=== PATIENT | female | born 1980 | race Caucasian/White ===

== ENCOUNTER 2018-06-18 17:46 | Observation (INO) ==
[2018-06-18] MEDS ORDERED: NS 1,000 ML IV ONE ×2 (18:34→21:48)
[2018-06-18] MEDS ORDERED: ZOFRAN IV ONE ×2 (18:34→22:31)
[2018-06-18] MEDS ORDERED: MORPHINE IV ONE ×2 (18:34→21:47)
[2018-06-18 18:48] LABS: URINE SOURCE CLEAN CATCH
[2018-06-18 18:51] LABS: BILIRUBIN URINE NEGATIVE (NEGATIVE); BLOOD URINE NEGATIVE (NEGATIVE); COLOR YELLOW; GLUCOSE URINE >1000 mg/dL (NEGATIVE); KETONE URINE 100 mg/dL (NEGATIVE); LEUKOCYTES URINE NEGATIVE (NEGATIVE); NITRITE URINE NEGATIVE (NEGATIVE); PH URINE 5.5; PROTEIN URINE 30 mg/dL (NEGATIVE); SP GRAVITY URINE 1.042; TURBIDITY URINE CLEAR (CLEAR); UR EPITHELIAL CELLS <10 /HPF (<10); URINE BACTERIA NEGATIVE /HPF; URINE RBC <10 /HPF (<10); URINE WBC <10 /HPF (<10); UROBILINOGEN URINE NORMAL (NORMAL)
[2018-06-18 19:12] LABS: BASO# 0.02 X1000 (0.0-0.2); BASO% 0.2 % (0.0-0.8); EOS# 0.01 X1000 (0.0-0.7); EOS% 0.1 % (0.0-10.0); HEMATOCRIT 42.9 % (37.0-47.0); HEMOGLOBIN 14.6 g/dL (12.0-16.0); IMM GRAN# 0.03 X1000 (0.0-0.04); IMM GRAN% 0.3 % (0.0-0.5); LYMPH# 1.46 X1000 (1.2-3.4); LYMPH% 13.3 % (20.5-51.1); MCH 29.8 PG (27-31); MCV 87.6 FL (81-99); MONO# 0.65 X1000 (0.11-0.59); MONO% 5.9 % (1.7-9.3); MPV 11.8 FL (7.4-10.4); NEUT# 8.77 X1000 (1.4-6.5); NEUT% 80.2 % (42.2-75.2); PLT 236 X1000 (130-400); RDW 13.7 % (11.5-14.5); WBC 10.94 X1000 (4.8-10.8)
[2018-06-18 19:26] LABS: AGAP 17; ALB/GLOB RATIO 1.4; ALBUMIN 4.4 g/dL (3.5-5.0); ALKALINE PHOSPHATASE 69 U/L (32-104); AMYLASE 23 U/L (20-200); BUN 13 mg/dL (8-22); CALCIUM 9.1 mg/dL (8.8-10.2); CHLORIDE 98 mmol/L (98-107); COSMO 284; CREATININE 0.6 mg/dL (0.5-0.9); ESTIMATED GFR > 60; GLUCOSE 308 mg/dL (70-104); GOT 16 U/L (10-30); GPT 18 U/L (10-36); LIPASE 16 U/L (13-60); POTASSIUM 4.5 mmol/L (3.5-5.1); SODIUM 136 mmol/L (136-145); TCO2 21 mmol/L (25-35); TOTAL BILIRUBIN 0.37 mg/dL (0.20-1.00); TOTAL PROTEIN 7.5 g/dL (6.3-8.3)
--- NOTE | 2018-06-18 20:24 | Diag Imaging Result Doc PS360 ---
EXAM: CT ABD/PELVIS W/IV CONT ONLY 06/18/2018 HISTORY: abdominal pain; vomiting TECHNIQUE: This exam was performed using automated exposure control, adjustment of mA or kV according to patient size, and/or use of iterative reconstruction technique. COMMENT: There are no previous studies available for comparison. There is atelectasis or fibrosis in the inferior lingula. The liver is markedly hypodense suggesting fatty change. The spleen is enlarged measuring over 15.6 cm. The left adrenal gland is enlarged although not particularly masslike. The CT density is 44 Hounsfield units. Still this could represent an adenoma, particularly in the absence of any known malignancy. The pancreas is unremarkable. The kidneys are without evidence of hydronephrosis or mass. There is no evidence of bowel obstruction there are no gallstones. The aorta is not distended. There is no significant adenopathy. Pelvis: There is some stool throughout the colon. The appendix is normal in appearance. There is diverticulosis of the sigmoid colon without evidence of diverticulitis. The left ovary is enlarged and multicystic. This measures 5.7 x 4.3 cm. There is no evidence of free fluid. No significant adenopathy is present. There is bilateral spondylolysis at L5. There is no evidence of acute bony disease. IMPRESSION: 1. Hepatic steatosis. 2. Enlargement of the left adrenal gland. Further follow-up with noncontrast CT and/or MRI may be desirable. 3. Enlarged and multicystic left ovary. Electronically signed by Dakotah Galloway 06/18/2018 8:22 PM
[2018-06-18 21:28] LABS: ALLEN TEST YES; BE 0.9 mmoll (-3.0-3.0); BLOOD TYPE ARTERIAL; HCO3-(ACT) 25.6 mmoll (20.0-26.0); METHB 0.7 % (0.0-1.5); O2(CT) 19.2 mL/dL (15.0-23.0); O2HB 94.8 % (95.0-99.0); PCO2(98.6) 34 mmHg (35-45); PO2(98.6) 83 mmHg (60-100); SAMPLE BLOOD; SAO2 98.5 % (95.0-100.0); THB 14.4 g/dL (11.5-17.4); pH(98.6) 7.46 (7.35-7.45)
[2018-06-18 21:30] LABS: MODALITY ROOM AIR
--- NOTE | 2018-06-18 22:32 | HISTORY AND PHYSICAL ---
PRIMARY CARE PHYSICIAN: None. CHIEF COMPLAINT: Abdominal pain. HISTORY OF PRESENTING ILLNESS: A 38-year-old female without any significant past medical history presented to emergency department with 1-day history of having intractable abdominal pain. She states her abdomen was cramping, and she was nauseated. She was brought to the emergency department, and she continued to have abdominal pain despite pain control. Due to her presenting symptoms, it was thought that we will place her for observation for further evaluation and management. At the time of my examination, patient denied any headache, fever, chills, chest pain, shortness of breath, hemoptysis, melena, weight changes but complained of abdominal pain. PAST MEDICAL HISTORY: None. PAST SURGICAL HISTORY: Hysterectomy. ALLERGIES: No known drug allergies. CURRENT MEDICATIONS: Include amoxicillin and Percocet. SOCIAL HISTORY: No history of smoking. Admits to social alcohol use. Denies any illicit drug use. FAMILY HISTORY: No history of coronary disease. REVIEW OF SYSTEMS: Fourteen-point review of systems as listed as in HPI. Other systems negative. PHYSICAL EXAMINATION: GENERAL: Cooperative, friendly female. She is resting more comfortably now. VITAL SIGNS: Temperature 97.4 degrees, pulse 97, respirations 20, blood pressure 142/85. HEENT: Atraumatic, normocephalic. Extraocular movements intact. PERRLA. NECK: Supple. CHEST: Clear to auscultation. CARDIOVASCULAR: Regular rate and rhythm. S1, S2. ABDOMEN: Soft. Mild tenderness. EXTREMITIES: No edema. NEUROLOGIC: She is awake, alert, oriented x3. GENITOURINARY: No bladder distention. SKIN: Warm. LABORATORY STUDIES: WBCs 10.94, hemoglobin 14.6, hematocrit 42.9, platelets 236,000. Sodium 136, potassium 4.5, chloride 98, CO2 is 21, BUN is 13, creatinine is 0.6, glucose is 308. ASSESSMENT: A 38-year-old female without any significant past medical history presented to emergency department with 1-day history of having nausea and abdominal pain. The patient was evaluated in the emergency department. Due to her presenting symptoms, and also findings of elevated blood glucose, it was thought that we will place her for observation for further evaluation management. 1. Abdominal pain, unclear etiology. 2. Hyperglycemia, possible new onset of diabetes. PLAN: 1. We will admit patient to medical floor with telemetry. 2. Continue with supportive treatment with IV fluids, antiemetics, pain control. 3. We will check a hemoglobin A1c and fasting blood glucose. 4. Put patient on a sliding scale insulin regimen. 5. Put patient on DVT prophylaxis with SCDs. 6. We will continue to follow and reassess and make further recommendations based on patient's clinical course. cc: Winston Vogel MD
--- NOTE | 2018-06-18 22:33 | PROVIDER DOCUMENTATION ---
This chart was entered by Enriqueta Lindquist Scribe, acting as scribe for Cristino Oneill MD. HPI-Abdominal Pain/GI Problem - General Chief Complaint: Abdominal Pain Stated Complaint: ABD PAIN,NAUSEA,VOMITING Time Seen by Provider: 06/18/18 18:15 Source: patient Allergies/Adverse Reactions: Patient Allergies Allergy/AdvReac Type Severity Reaction Status Date / Time No Known Allergies Allergy Unverified 10/08/16 08:39 Home Medications: Home Medication List Medication Instructions Recorded Confirmed Last Taken Type Acetaminophen [Tylenol Extra 500 mg PO PRN PRN 09/14/12 10/08/16 09/09/12 09:00 History Strength] 2 tabs Phenylephrine HCl/Acetaminophn 1 each PO DIRECTED PRN 10/08/16 10/08/16 Unknown History [Tylenol Sinus [place]-Pain Gelcap] Hydrocodone/APAP 5 mg/325 mg 1 each PO Q4H PRN PRN #30 tablet 10/15/16 Unknown Rx [Belva-5] Ketorolac [Toradol] 10 mg PO Q6H PRN #20 tab 10/15/16 Unknown Rx - History of Present Illness-ABD Nature of Presenting Problems: 38 yof presents to ED c/o severe abdominal pain and vomiting that started this morning. Pt states she had a tooth removed yesterday and was given amoxicillin and pain meds of which she has had 2 doses. Pt denies fever or urinary symptoms. Abdominal Pain Onset Location: reports: generalized abdomen (across upper midline of abdomen) Severity in ED: reports: severe Onset/Duration: reports: 4-6 hours ago Timing: reports: still present Modifying Factors: improves with: nothing Associated Symptoms: reports: vomiting Last BM: this morning Dark Stools Present?: reports: none noticed Rectal Bleeding: reports: none Review of Systems - Adult - REVIEW OF SYSTEMS - ADULT Constitutional: reports: see HPI. denies: chills, fever Eyes: reports: no symptoms reported Ears, Nose, Mouth & Throat: reports: no symptoms reported Cardiovascular: reports: no symptoms reported Respiratory: reports: no symptoms reported Gastrointestinal: reports: see HPI, abdominal pain, nausea, vomiting Genitourinary: reports: no symptoms reported Musculoskeletal: reports: no symptoms reported Integumentary: reports: no symptoms reported Neurological: reports: no symptoms reported Psychiatric: reports: no symptoms reported Endocrine: reports: no symptoms reported Hematologic/Lymphatic: reports: no symptoms reported Allergic/Immunologic: reports: no symptoms reported All Other Systems: Reviewed and Negative Past History - Adult - PAST MEDICAL HISTORY-ADULT Review of Records: reports: Old Records Reviewed, Nursing Assessment Review, Medications Reviewed, Social history reviewed & non-contributory. Major Childhood Illnesses: reports: denies history Cardiovascular: reports: denies history Respiratory: reports: denies history Gastrointestinal: reports: denies history Obstetrical/Gynecological: reports: denies history Genitourinary: reports: denies history Musculoskeletal: reports: denies history Neurological: reports: denies history Endocrine/Immune: reports: denies history Other Conditions: reports: denies history - IMMUNIZATION STATUS Childhood Immunizations: See Nurse Assessment Flu Vaccine: See Nurse Assessment - FAMILY HISTORY Family History: reviewed, not pertinent - SOCIAL HISTORY Smoking: quit greater than 1 year Physical Exam-General - PHYSICAL EXAM-ADULT Initial Vital Signs Reviewed: Yes - CONSTITUTIONAL General Appearance: alert, severe distress. negative: combative - EYES Eyes: PERRL/EOMI, pink conjunctivae. negative: photophobia, sunken eyes - HEAD, EARS, NOSE, MOUTH & THROAT HENMT: normocephalic/atraumatic, moist mucous membranes - NECK Neck: non-tender, full range of motion, supple, normal inspection. negative: Brudzinski's sign, carotid bruit - RESPIRATORY Respiratory: chest non-tender, lungs clear, normal breath sounds, no pleuratic chest pain, no respiratory distress, no accessory muscle use. negative: crackles, rhonchi - CARDIOVASCULAR Cardiovascular: normal peripheral pulses, regular rate, rhythm. negative: bradycardia, tachycardia - GASTROINTESTINAL (ABDOMEN) Abdominal Exam: soft, tenderness (across entire midline of abdomen). negative: distended, rigid - LYMPHATIC Lymphatic: no adenopathy. negative: striations - MUSCULOSKELETAL Back Exam: normal inspection, no CVA tenderness. negative: ecchymosis, swelling Extremity: normal range of motion, non-tender, normal gait, normal inspection. negative: erythema, swelling - SKIN Integumentary: normal color, normal turgor, warm/dry. 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 negative: facial droop, focal weakness - PSYCHIATRIC Psych/Mental Status: normal mood/affect, normal thought content, normal thought process, oriented x 3 Progress - PLAN OF CARE/RESULTS Progress/Plan/Lab Results: Vital Signs - 8 hr 06/18/18 17:52 Temperature 97.4 F L Pulse Rate 97 H Respiratory Rate 20 Blood Pressure 142/85 O2 Sat by Pulse Oximetry 94 L Orders Category Date Time Status CT ABD/PELVIS W/IV CONT ONLY [CT] Stat Exams 06/18/18 18:34 Ordered AMYLASE [CHEM] Stat Lab 06/18/18 18:31 Uncollected CBC WITH ELECTRONIC DIFF [HEME] Stat Lab 06/18/18 18:31 Uncollected COMPREHENSIVE METABOLIC PANEL [CHEM] Stat Lab 06/18/18 18:31 Uncollected LIPASE [CHEM] Stat Lab 06/18/18 18:31 Uncollected PT [PROTIME WITH INR] [COAG] Stat Lab 06/18/18 18:32 Uncollected PTT [COAG] Stat Lab 06/18/18 18:32 Uncollected URINALYSIS W/POSS RFLX CULT [URINALYSIS] Stat Lab 06/18/18 18:42 Ordered 0.9% Sodium Chloride Inj [Ns] 1,000 ml Med 06/18/18 18:34 Active IV 999 mls/hr Morphine Med 06/18/18 18:34 Discontinued 4 mg IV NOW ONE Ondansetron [Zofran] Med 06/18/18 18:34 Discontinued 4 mg IV NOW ONE Result Diagrams: 06/18/18 18:57 06/18/18 18:57 - REASSESSMENT Reassessment #1 Time Reassessed: 21:48 Status: improving (patient still with some abdominal pain after mild initial improvement with morphine) - CT/MRI 1 CT Study: Abdomen, Pelvis (IMPRESSION: 1. Hepatic steatosis. 2. Enlargement of the left adrenal gland. Further follow-up with noncontrast CT and/or MRI may be desirable. 3. Enlarged and multicystic left ovary. Electronically signed by Dakotah Galloway 06/18/2018 8:22 PM) Impression: See EMR Report - CONSULTS/PCP/HOSPITALIST Notification #1 *Consult/PCP/Hospitalist*: Dr. 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 insulin use: without termite treater use Qualified Code(s): E11.65 - Type 2 diabetes mellitus with hyperglycemia Vomiting Qualifiers: Vomiting type: unspecified Vomiting Intractability: unspecified Nausea presence: with nausea Qualified Code(s): R11.2 - Nausea with vomiting, unspecified Disposition: ADMITTED INPATIENT 09 Certified Medical Emergency: Emergent Condition: Serious - Critical Care Note This patient required my direct & personal management of CC.: No Attestation - Physician/ ROWDY Attestation Patient care was provided by Advanced Practice Provider:: No The physician spent face to face time with patient:: Yes Advanced Practice Provider documentation review:: Supervising physician onsite and consulted in the evaluation and care of this patient. The physician did have a face to face encounter with the patient. This chart was documented by the indicated scribe, (Enriqueta Lindquist Scribe) and accurately reflects the services I performed and decisions made by Nino field Kofi X., MD, as attested by the provider's signature.
[2018-06-18 23:54] LABS: HEMOGLOBIN A1C 9.6 % (4.8-6.0)
[2018-06-19] MEDS: NS 1,000 ML IV SCH ×3 (00:11→17:00)
[2018-06-19 01:08] LABS: INR 0.97; PROTIME 13.7 Seconds (11.0-16.0)
[2018-06-19 01:09] LABS: PTT 29.8 Seconds (22.3-41.8)
[2018-06-19 05:54] LABS: BASO# 0.02 X1000 (0.0-0.2); BASO% 0.2 % (0.0-0.8); EOS# 0.11 X1000 (0.0-0.7); EOS% 1.1 % (0.0-10.0); HEMOGLOBIN 13.1 g/dL (12.0-16.0); IMM GRAN# 0.03 X1000 (0.0-0.04); IMM GRAN% 0.3 % (0.0-0.5); LYMPH# 2.25 X1000 (1.2-3.4); LYMPH% 22.9 % (20.5-51.1); MCH 30.3 PG (27-31); MCHC 33.6 g/dL (33-37); MCV 90.1 FL (81-99); MONO# 0.86 X1000 (0.11-0.59); MONO% 8.8 % (1.7-9.3); MPV 11.7 FL (7.4-10.4); NEUT# 6.54 X1000 (1.4-6.5); NEUT% 66.7 % (42.2-75.2); PLT 197 X1000 (130-400); RBC 4.33 XMIL (4.2-5.4); RDW 13.8 % (11.5-14.5); WBC 9.81 X1000 (4.8-10.8)
[2018-06-19 06:27] LABS: AGAP 8; BUN 13 mg/dL (8-22); CALCIUM 8.6 mg/dL (8.8-10.2); CHLORIDE 102 mmol/L (98-107); COSMO 283; CREATININE 0.6 mg/dL (0.5-0.9); ESTIMATED GFR > 60; GLUCOSE 255 mg/dL (70-104); POTASSIUM 3.7 mmol/L (3.5-5.1); SODIUM 137 mmol/L (136-145); TCO2 27 mmol/L (25-35)
[2018-06-19] MEDS: HUMULIN R SUBQ SCH ×4 (07:27→22:01)
[2018-06-19] MEDS: NORCO-5 PO PRN ×3 (12:41→23:53)
[2018-06-19] MEDS ORDERED: GLUCOPHAGE PO ONE (15:47)
[2018-06-19] MEDS: ZOFRAN IV PRN ×3 (15:52→23:53)
[2018-06-19] MEDS ORDERED: AYR NASAL SPRAY NAS PRN (16:01)
[2018-06-19] MEDS ORDERED: DILAUDID IV ONE (16:01)
[2018-06-19] MEDS ORDERED: DILAUDID ONE (17:39)
--- NOTE | 2018-06-19 17:39 | DISCHARGE SUMMARY ---
ADMISSION DATE: 06/18/2018 DISCHARGE DATE: DIAGNOSIS: 1. Type 2 diabetes, new onset. 2. Abdominal pain associated with possible constipation and irritable bowel. Briefly a 38-year-old female presenting with cramping in her lower quadrants. This was associated with she was recently started on Percocet and Augmentin for a tooth abscess. Her workup in the ER was unremarkable. She had an enlarged ovary. She had some constipation. Her CT scan was unrevealing. However, she was hyperglycemic and that was a new diagnosis with a sugar of 308. She was admitted for treatment. Her A1c is 9.6. The following day she is fine, afebrile. White count is normal. Sugars are down into the 200s. Her A1c again 9.6. She is asking to go home. She is tolerating p.o. without difficulty, which I think is just clears, but overall she has improved. I did initiate her on metformin. We discussed about keeping up with her blood sugar, doing a diabetic diet and getting set up with outpatient teaching classes. She will also need to monitor her sugars. I encouraged her to do that at least daily if not once daily at least not 3 times daily. We will refer her to local physician for management of metformin, also refer her to Dr. Jessica for workup of her abdominal cramping, which may be multifactorial. TIME SPENT: 32 minutes. cc: Rj Conti MD
[2018-06-19] MEDS: PATIENT'S OWN MED PO SCH (21:59)
[2018-06-20] MEDS: NS 1,000 ML IV SCH ×3 (04:10→16:37)
[2018-06-20] MEDS: HUMULIN R SUBQ SCH ×3 (06:48→17:47)
[2018-06-20] MEDS: GLUCOPHAGE PO SCH ×2 (08:19→17:51)
[2018-06-20] MEDS: PATIENT'S OWN MED PO SCH (08:19)
[2018-06-20] MEDS: NORCO-5 PO PRN (16:36)
[2018-06-20 16:44] VITALS: BP 130/76
--- NOTE | 2018-06-20 16:47 | Diag Imaging Result Doc PS360 ---
US ABDOMEN-COMPLETE - 06/20/2018 INDICATION: abdominal pain COMPARISON: CT 06/18/2018 FINDINGS: There is moderate to severe, diffuse fatty change of the liver. No liver masses. The gallbladder, pancreas, spleen, and both kidneys are normal. Common bile duct measures 5 mm. Aorta, IVC, and main portal vein are patent. IMPRESSION: Hepatic steatosis. Electronically signed by Nasir Cervantes 06/20/2018 4:44 PM
[2018-06-20] MEDS: ZOFRAN IV PRN (17:42)
== END 2018-06-20 18:32 | disposition home or self-care (01) ==
LOC: 4N 17:46 → ED 17:46 → SUATTDRO 17:47
PROVIDERS: ATTEND Internal Medicine
CPT/HCPCS: 74177; 76700; 80048; 80053; 81001; 82009; 82150; 82805; 82948; 83036; 83690; 84443; 85025; 85610; 85730; 96361; 96374; 96376; 99285; A9270; J1170; J2270; J2405; J7030; Q9967; XXXXX